=== PATIENT | female | born 2005 | race Two or more races ===

== ENCOUNTER 2025-03-29 14:13 | Outpatient (CLI) | payer BC ==
[2025-03-29 14:55] LABS: Hematocrit 41.0 % (36.0-46.0); Hemoglobin 14.2 g/dL (12.2-16.2); Mean Corpuscular Hemoglobin 31.1 pg (28.0-32.0); Mean Corpuscular Volume 89.8 fL (80.0-100.0); Nucleated Red Blood Cells % 0.2 %
[2025-03-29 15:18] LABS: Urine Protein, UAD Negative (Negative)
[2025-03-29 15:44] LABS: Alanine Aminotransferase 15 U/L (7-40); Albumin 4.6 g/dL (3.2-4.8); Alkaline Phosphatase 76 U/L (46-116); Anion Gap 9 (5-15); BUN/Creatinine Ratio 6.3 (10.0-20.0); Calcium 9.8 mg/dL (8.7-10.4); Carbon Dioxide 28 mmol/L (20-31); Chloride 103 mmol/L (98-107); Cholesterol 153 mg/dL (< 200); Glucose 90 mg/dL (74-106); Potassium 4.0 mmol/L (3.5-5.1); Sodium 140 mmol/L (136-145); Total Protein 7.9 g/dL (5.7-8.2); Triglycerides 46 mg/dL (< 150)
[2025-03-29 15:45] LABS: Bilirubin, Total 0.6 mg/dL (0.2-1.0)
[2025-03-29 15:46] LABS: Blood Urea Nitrogen 5 mg/dL (9-23); HDL Cholesterol 67 mg/dL (40-59)
[2025-03-29 15:47] LABS: Follicle Stimulating Hormone 16.66 IU/L (SEE BELOW)
== END 2025-03-29 17:00 | disposition home or self-care (01) ==
LOC: LAB 14:13
PROVIDERS: ATTEND Student in an Organized Health Care Education/Training Program
DX: E55.9 Vitamin D deficiency, unspecified (principal); N92.6 Irregular menstruation, unspecified; R03.0 Elevated blood-pressure reading, without diagnosis of hypertension; R73.9 Hyperglycemia, unspecified
CPT/HCPCS: 36415; 80053; 80061; 81001; 82306; 83001; 83002; 83036; 84146; 84403; 84443; 85025